=== PATIENT | male | born 1945 | race Caucasian/White ===

== ENCOUNTER → 2016-05-11 | Outpatient (CLI) | payer OTHER, MEDICARE | LOC: BMCIMAGING 13:15 | PROVIDERS: ATTEND Internal Medicine | DX: R53.83 Other fatigue (principal) ==

== ENCOUNTER → 2016-06-23 | Outpatient (CLI) | payer OTHER, MEDICARE | LOC: BHFA 09:30 | PROVIDERS: ATTEND Internal Medicine Cardiovascular Disease | DX: R94.39 Abnormal result of other cardiovascular function study (principal) ==

== ENCOUNTER 2016-07-04 08:02 | Day surgery (SDC) | payer OTHER, MEDICARE ==
[2016-07-04] MEDS ORDERED: diphenhydrAMINE 25 MG CAP PO ONE ×2 (08:05→08:43)
[2016-07-04] MEDS ORDERED: DIAZEPAM 5 MG TAB PO ONE (08:05)
[2016-07-04] MEDS ORDERED: FAMOTIDINE 20 MG TAB PO ONE (08:05)
[2016-07-04] MEDS ORDERED: ASPIRIN EC 325 MG TAB PO ONE ×2 (08:05→08:44)
[2016-07-04] MEDS ORDERED: NS 1,000 ML IV ONE (08:05)
--- NOTE | 2016-07-04 08:28 | CPEKG ---
Heart Rate: 72 RR Interval: 833 P-R Interval: 188 QRSD Interval: 78 QT Interval: 404 QTC Interval: 443 P Colby: 35 QRS Colby: 40 T Wave Colby: 30 EKG Severity - NORMAL ECG - EKG Impression: SINUS RHYTHM Electronically Signed By: Nicole Pino 04-Jul-2016 08:33:30
[2016-07-04] MEDS ORDERED: FAMOTIDINE 20 MG TAB ONE (08:43)
[2016-07-04] MEDS ORDERED: DIAZEPAM 5 MG TAB ONE (08:44)
[2016-07-04 08:47] LABS: % IMMATURE GRANULYOCYTES 0.3 % (0.0-1.1); ABSOLUTE IMMATURE GRANULOCYTES 0.02 10^3/uL (0.00-0.10); ADD DIFF? NO; ADD MORPH? NO; ADD SCAN? NO; ATYPICAL LYMPHOCYTE FLAG 0 (0-99); FRAGMENT RBC FLAG 0 (0-99); HEMATOCRIT 43.8 % (40.0-51.0); HEMOGLOBIN 15.1 g/dL (13.7-17.5); LEFT SHIFT FLG 0 (0-99); LIPEMIA HEMOLYSIS FLAG 90 (0-99); MEAN CELL HEMOGLOBIN 29.2 pg (27.9-34.1); MEAN CELL HEMOGLOBIN CONCENTR. 34.5 g/dL (32.4-36.7); MEAN CELL VOLUME 84.7 fL (81.5-99.8); MEAN PLATELET VOLUME 10.1 fL (8.7-11.7); PLATELET CLUMPS FLAG 0 (0-99); PLATELET COUNT 187 10^3/uL (150-400); RED BLOOD CELL COUNT 5.17 10^6/uL (4.40-6.38); RED CELL DISTRIBUTION WIDTH 13.3 % (11.5-15.2)
[2016-07-04 09:11] LABS: INR 0.96 (0.83-1.16); PROTIME(PATIENT) 12.7 SEC (12.0-15.0)
[2016-07-04 09:16] LABS: ANION GAP 11 mEq/L (8-16); CALCIUM 9.3 mg/dL (8.5-10.4); CARBON DIOXIDE 25 mEq/l (22-31); CHLORIDE 107 mEq/L (97-110); CHOLESTEROL 133 mg/dL (140-220); CHOLESTEROL/HDL RATIO 2.46 RATIO (1.00-4.97); GLOMERULAR FILTRATION RATE > 60; GLUCOSE 113 mg/dL (70-100); HIGH DENSITY LIPOPROTEIN 54 mg/dL (40-65); LDL/HDL RATIO 1.19 RATIO (1.00-3.64); LOW DENSITY LIPOPROTEIN 64 mg/dL (80-100); NON-HIGH DENSITY LIPOPROTEIN 79 mg/dL (90-129); POTASSIUM 4.4 mEq/L (3.5-5.2); SODIUM 143 mEq/L (134-144); TRIGLYCERIDE 79 mg/dL (40-150); VERY LOW DENSITY LIPOPROTEINS 15 mg/dL (8-25)
[2016-07-04] MEDS ORDERED: LIDOCAINE 1% 30 ML SDV ONE (10:05)
[2016-07-04] MEDS ORDERED: fentaNYL 100 MCG/2 ML INJ ONE (10:05)
[2016-07-04] MEDS ORDERED: IOPAMIDOL (ISOVUE-370) 150 ML BTL IV ONE (10:06)
[2016-07-04] MEDS ORDERED: MIDAZOLAM 2 MG/2 ML VIAL ONE (10:06)
[2016-07-04] MEDS ORDERED: VERAPAMIL 5 MG/2 ML VIAL ONE (10:06)
[2016-07-04] MEDS ORDERED: HEPARIN 10,000 UNIT/10 ML MDV ONE (10:06)
--- NOTE | 2016-07-04 14:48 | PDDXCAT ---
Diagnostic Cath Note - . Date: 07/04/16 Continuing Education Director: Dre Indication: other (Mildly abnormal ETT, declining exercise tolerance, and risk factors for CAD.) - Procedure Access: right wrist Procedure: left heart catheterization, coronary angiography, left ventriculogram - Materials Left Heart Cath size: 5F Left Heart Cath materials: other (Trans catheter and Pigtail) - Findings-Left Heart Catheterization LM: Normal. LAD: Mild irregularities; proximal 1st diagonal with moderate irregularities less than 50%; ostium of 2nd diagonal with 50% lesion. LCX: Mild irregularities. RCA: Ostium with 40% lesion; proximal 30% lesion. LVEF: 65% Wall motion: Normal Complications: None Closure method: TR Band Assessment: 1) Normal LV systolic function. 2) [place] CAD as described above. Plan: Aggressive secondary prevention. Patient Problems: Problems Problem Status Onset Elevated liver enzymes Acute Syncope Acute
[2016-07-04 18:07] VITALS: BP 133/71; RESP 21; O2SAT 93
== END 2016-07-04 16:00 | disposition home or self-care (01) ==
LOC: FCATH 08:02
PROVIDERS: ATTEND Internal Medicine Interventional Cardiology
PROC: B2111ZZ Fluoroscopy of Multiple Coronary Arteries using Low Osmolar Contrast (ICD-10-PCS; principal; 2016-07-04)
PROC: 4A023N7 Measurement of Cardiac Sampling and Pressure, Left Heart, Percutaneous Approach (ICD-10-PCS; principal; 2016-07-04)
PROC: B2151ZZ Fluoroscopy of Left Heart using Low Osmolar Contrast (ICD-10-PCS; principal; 2016-07-04)
DX: R06.00 Dyspnea, unspecified (principal); R94.39 Abnormal result of other cardiovascular function study; I25.10 Atherosclerotic heart disease of native coronary artery without angina pectoris; E78.5 Hyperlipidemia, unspecified
CPT/HCPCS: 93005; 93458; C1769; J1644; J2250; J3010; Q9967

== ENCOUNTER → 2016-12-26 | Outpatient (CLI) | payer OTHER, MEDICARE | LOC: BMCIMAGING 16:14 | PROVIDERS: ATTEND Nurse Practitioner Adult Health | DX: M25.512 Pain in left shoulder (principal); M19.012 Primary osteoarthritis, left shoulder; Z87.81 Personal history of (healed) traumatic fracture ==